=== PATIENT | female | born 1995 | race African-American/Black ===

== ENCOUNTER 2016-07-07 04:30 | Emergency (ER) | payer OTHER ==
--- NOTE | 2016-07-07 07:18 | ED CLINICAL REPORT ---
Clinical Report - Physicians/Mid Levels [facility] [address] [place] [address] 07/07/2016 4:30 Patient: MELIA PANG Time Seen: 04:53 Jul 07 2016. Arrived- By private vehicle. Historian- patient. CPT: ER phys charges level 4 (#[id number]). HISTORY OF PRESENT ILLNESS Chief Complaint: ABDOMINAL PAIN. This started just prior to arrival ( Pt came in with lower abdominal pain. Pt woke up with the pain. [facility] stated she may be preg due to a depo shot that was about 5 months ago when she got the shot. She was at the clinic about 3 weeks ago. Pt is having spotting and was having vaginal discharge 2 days ago that was thick and white. Pt denies any pain on urination. Last BM was yesterday and was normal brown and formed per pt.). and is still present. It was abrupt in onset and has been constant. It is described as "pain", sharp and stabbing and it is described as located in the left pelvis. At its maximum, severity described as moderate. When seen in the E.D., severity described as moderate. Modifying factors- worsened by movement. Relieved by rest. No nausea, loss of appetite, vomiting or diarrhea. (Loss of periods due to depo shot.). No recent travel. Similar symptoms previously: None. Recent medical care: The patient was seen recently by a health care provider. REVIEW OF SYSTEMS No constipation, black stools, hematemesis, difficulty with urination or pain with urination. No urinary frequency, fever, sore throat, chest pain or difficulty breathing. No cough, joint pain, skin rash, chills or back pain. Denies current . All systems otherwise negative, except as recorded above. PAST HISTORY Sinusitis. Conjunctivitis. Asthma. Medications: None. Allergies: No Known Drug Allergy. SOCIAL HISTORY Never smoker. No alcohol use or drug use. ADDITIONAL NOTES The nursing notes have been reviewed. PHYSICAL EXAM Vital Signs: 07/07/2016 04:37 BP: 129/89. HR: 98. RR: 22. O2 saturation: 100%. Temp: 97.8 F. Appearance: Alert. Patient in mild distress. Eyes: Pupils equal, round and reactive to light. Eyes normal inspection. ENT: Ears normal. Nose normal. Pharynx normal. Neck: Normal inspection. Neck supple. CVS: Normal heart rate and rhythm. Heart sounds normal. Pulses normal. Respiratory: No respiratory distress. Breath sounds normal. Chest nontender. Abdomen: Soft. Mild tenderness in the left lower quadrant. Bowel sounds normal. Back: Normal inspection. No CVA tenderness. Skin: Skin warm. Normal skin color. No rash. Extremities: Extremities exhibit normal ROM. No lower extremity edema. Neuro: Oriented X 3. No motor deficit. No sensory deficit. LABS, X-RAYS, AND EKG Laboratory Tests: UA-Culture if indicated: (MENDOZA: 07/07/2016 04:40) ( MsgRcvd 07/07/2016 05:09) Final results Test Result Flag Units (Reference) URINE COLOR YELLOW URINE APPEARANCE CLEAR URINE GLUCOSE NEGATIVE (NEGATIVE) URINE BILIRUBIN NEGATIVE (NEGATIVE) URINE KETONE NEGATIVE (NEGATIVE) URINE SPECIFIC GRAVITY 1.020 (1.010-1.030) URINE PH 6.5 (5.0-8.0) URINE PROTEIN NEGATIVE (NEGATIVE) URINE UROBILINOGEN 0.2 EU/dL (0.2-1.0) URINE NITRITE NEGATIVE (NEGATIVE) URINE BLOOD TRACE-INTACT (NEGATIVE) URINE LEUK ESTERASE NEGATIVE (NEGATIVE) URINE RBC 0-1 rbc/hpf (0-1) URINE WBC NONE SEEN wbc/hpf (0-1) URINE EPITHELIAL CELLS 1-3 EPI/hpf (0-5) URINE BACTERIA NONE SEEN (NONE SEEN) URINE COMMENT CULT NOT INDICATED URINE CULTURES ARE SET-UP BASED ON THE FOLLOWING CRITERIA:POSITIVE NITRITEPOSITIVE LEUKOCYTE ESTERASEGREATER THAN 10 WHITE BLOOD CELLSMODERATE (2+) OR GREATER BACTERIA Urine: (MENDOZA: 07/07/2016 04:40) ( MsgRcvd 07/07/2016 05:04) Final results Test Result Flag Units (Reference) URINE NEGATIVE . PROGRESS AND PROCEDURES Course of Care: ultrasound was called, and a pelvic ultrasound. We were unable to get into contact with the electroplating technician first couple of hours. Patient got frustrated with this and decided to leave prior to getting ultrasound. Discussed the fact that left ovarian cyst was likely diagnosis but could not be proven without imaging. She wishes to follow-up with her PCP. Patient/family counseled. Disposition: Discharged. Condition: stable. CLINICAL IMPRESSION Probable single ruptured simple left ovarian cyst. INSTRUCTIONS Do not work for two days until better. Drink plenty of fluids. Warnings: Further evaluation is necessary. GENERAL WARNINGS: Return or contact your physician immediately if your condition worsens or changes unexpectedly, if not improving as expected, or if other problems arise. Prescription Medications: Hydrocodone/APAP 5mg/325mg: take 1 to 2 orally every 6 hours as needed for pain. Dispense fifteen (15). No refills. Follow-up: Follow up with your doctor Saturday if not better. Understanding of the discharge instructions verbalized by patient. Discharge instructions reviewed with and understanding was verbalized by accounts executive. (Electronically signed by Darnell Vaughn MD 07/09/2016 21:55)
--- NOTE | 2016-07-07 07:18 | ED CLINICAL REPORT ---
Clinical Report - Physicians/Mid Levels [facility] [address] [place] [address] 07/07/2016 4:30 Patient: MELIA PANG Time Seen: 04:53 Jul 07 2016. Arrived- By private vehicle. Historian- patient. CPT: ER phys charges level 4 (#[id number]). HISTORY OF PRESENT ILLNESS Chief Complaint: ABDOMINAL PAIN. This started just prior to arrival ( Pt came in with lower abdominal pain. Pt woke up with the pain. [facility] stated she may be preg due to a depo shot that was about 5 months ago when she got the shot. She was at the clinic about 3 weeks ago. Pt is having spotting and was having vaginal discharge 2 days ago that was thick and white. Pt denies any pain on urination. Last BM was yesterday and was normal brown and formed per pt.). and is still present. It was abrupt in onset and has been constant. It is described as "pain", sharp and stabbing and it is described as located in the left pelvis. At its maximum, severity described as moderate. When seen in the E.D., severity described as moderate. Modifying factors- worsened by movement. Relieved by rest. No nausea, loss of appetite, vomiting or diarrhea. (Loss of periods due to depo shot.). No recent travel. Similar symptoms previously: None. Recent medical care: The patient was seen recently by a health care provider. REVIEW OF SYSTEMS No constipation, black stools, hematemesis, difficulty with urination or pain with urination. No urinary frequency, fever, sore throat, chest pain or difficulty breathing. No cough, joint pain, skin rash, chills or back pain. Denies current . All systems otherwise negative, except as recorded above. PAST HISTORY Sinusitis. Conjunctivitis. Asthma. Medications: None. Allergies: No Known Drug Allergy. SOCIAL HISTORY Never smoker. No alcohol use or drug use. ADDITIONAL NOTES The nursing notes have been reviewed. PHYSICAL EXAM Vital Signs: 07/07/2016 04:37 BP: 129/89. HR: 98. RR: 22. O2 saturation: 100%. Temp: 97.8 F. Appearance: Alert. Patient in mild distress. Eyes: Pupils equal, round and reactive to light. Eyes normal inspection. ENT: Ears normal. Nose normal. Pharynx normal. Neck: Normal inspection. Neck supple. CVS: Normal heart rate and rhythm. Heart sounds normal. Pulses normal. Respiratory: No respiratory distress. Breath sounds normal. Chest nontender. Abdomen: Soft. Mild tenderness in the left lower quadrant. Bowel sounds normal. Back: Normal inspection. No CVA tenderness. Skin: Skin warm. Normal skin color. No rash. Extremities: Extremities exhibit normal ROM. No lower extremity edema. Neuro: Oriented X 3. No motor deficit. No sensory deficit. LABS, X-RAYS, AND EKG Laboratory Tests: UA-Culture if indicated: (MENDOZA: 07/07/2016 04:40) ( MsgRcvd 07/07/2016 05:09) Final results Test Result Flag Units (Reference) URINE COLOR YELLOW URINE APPEARANCE CLEAR URINE GLUCOSE NEGATIVE (NEGATIVE) URINE BILIRUBIN NEGATIVE (NEGATIVE) URINE KETONE NEGATIVE (NEGATIVE) URINE SPECIFIC GRAVITY 1.020 (1.010-1.030) URINE PH 6.5 (5.0-8.0) URINE PROTEIN NEGATIVE (NEGATIVE) URINE UROBILINOGEN 0.2 EU/dL (0.2-1.0) URINE NITRITE NEGATIVE (NEGATIVE) URINE BLOOD TRACE-INTACT (NEGATIVE) URINE LEUK ESTERASE NEGATIVE (NEGATIVE) URINE RBC 0-1 rbc/hpf (0-1) URINE WBC NONE SEEN wbc/hpf (0-1) URINE EPITHELIAL CELLS 1-3 EPI/hpf (0-5) URINE BACTERIA NONE SEEN (NONE SEEN) URINE COMMENT CULT NOT INDICATED URINE CULTURES ARE SET-UP BASED ON THE FOLLOWING CRITERIA:POSITIVE NITRITEPOSITIVE LEUKOCYTE ESTERASEGREATER THAN 10 WHITE BLOOD CELLSMODERATE (2+) OR GREATER BACTERIA Urine: (MENDOZA: 07/07/2016 04:40) ( MsgRcvd 07/07/2016 05:04) Final results Test Result Flag Units (Reference) URINE NEGATIVE . PROGRESS AND PROCEDURES Course of Care: ultrasound was called, and a pelvic ultrasound. We were unable to get into contact with the domestic technician first couple of hours. Patient got frustrated with this and decided to leave prior to getting ultrasound. Discussed the fact that left ovarian cyst was likely diagnosis but could not be proven without imaging. She wishes to follow-up with her PCP. Patient/family counseled. Disposition: Discharged. Condition: stable. CLINICAL IMPRESSION Probable single ruptured simple left ovarian cyst. INSTRUCTIONS Do not work for two days until better. Drink plenty of fluids. Warnings: Further evaluation is necessary. GENERAL WARNINGS: Return or contact your physician immediately if your condition worsens or changes unexpectedly, if not improving as expected, or if other problems arise. Prescription Medications: Hydrocodone/APAP 5mg/325mg: take 1 to 2 orally every 6 hours as needed for pain. Dispense fifteen (15). No refills. Follow-up: Follow up with your doctor Saturday if not better. Understanding of the discharge instructions verbalized by patient. Discharge instructions reviewed with and understanding was verbalized by tug boat captain. (Electronically signed by Darnell Vaughn MD 07/09/2016 21:55)
--- NOTE | 2016-07-07 07:18 | ED NURSING NOTES ---
Clinical Report - Nurses [facility] [address] [place] [address] 07/07/2016 4:30 Patient: MELIA PANG TRIAGE Triage time 04:37. Acuity: LEVEL 3. Chief Complaint: ABDOMINAL PAIN. --04:46 Marvin Poe R.N. 04:37 07/07/16. BP: 129/89. HR: 98. RR: 22. O2 saturation: 100%. Temp: 97.8 F. --04:46 Marvin Poe R.N. Weight: 108.8 kg stated. Height/Length: 64 inches Per Patient. BMI: 41.2. --04:39 Marvin Poe R.N. Medications None. --04:44 Marvin Poe R.N. Medication/allergy information source: the patient. --04:46 Marvin Poe R.N. Allergies No Known Drug Allergy. --04:44 Marvin Poe R.N. History Arrived by private vehicle. Historian: patient. Accompanied by friend. This started just prior to arrival. ( Pt came in with lower abdominal pain. Pt woke up with the pain. [facility] stated she may be preg due to a depo shot that was about 5 months ago when she got the shot. She was at the clinic about 3 weeks ago. Pt is having spotting and was having vaginal discharge 2 days ago that was thick and white. Pt denies any pain on urination. Last BM was yesterday and was normal brown and formed per pt.). 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 SOCIAL HX: Never smoker. No alcohol use or drug use. --04:46 Marvin Poe R.N. PROBLEMS: Sinusitis. Conjunctivitis. Asthma. --04:45 Marvin Poe R.N. Interventions ID band on patient. To treatment room. --04:46 Marvin Poe R.N. PHYSICAL ASSESSMENT GENERAL / NEURO / PSYCH: Alert. Oriented X 4. Appears in no acute distress. RESPIRATORY: Respirations not labored. GI / : Abdominal tenderness in the suprapubic area and lower abdomen. SKIN: Skin is warm and dry. --04:58 Dawna Belcher. NURSING PROGRESS NOTES Patient gowned. Two patient identifiers checked. Call light placed in reach. Side rails up x 1. Bed placed in lowest position. --04:46 Marvin Poe R.N. Patient ready for evaluation- chart flagged and ED physician notified. --04:58 SimizODawna 06:38 07/07/16. BP: 98/50. HR: 74. RR: 20. O2 saturation: 100% on room air. Pain level now: 10/17. --06:39 Dawna Belcher ( Plan of care discussed with patient. Patient resting quietly). --06:39 Dawna Belcher. DISPOSITION / DISCHARGE Departure time: 07:Jul 07 2016. Condition at departure: improved and stable. No learning barriers present. Discharge instructions provided and reviewed with the patient. Reviewed medication(s) side effects, precautions and dosing information. Prescription(s) given to the patient. Patient verbalized understanding. Written instructions provided in Bermudian. The patient was discharged by the physician. She was discharged home and accompanied by director home health. She left the Emergency Department ambulatory and via private vehicle. Bankruptcy Processor driving. --08:02 Ema Lozoya R.N. 08:01 07/07/16. BP: 117/73. HR: 74. RR: 12. O2 saturation: 100% on room air. Temp: 97.8 F (oral). Pain level now: 10/17. --08:02 Ema Lozoya R.N. Locked/Released at 07/07/2016 8:03 by Ema Lozoya R.N.
--- NOTE | 2016-07-07 07:18 | ED ORDER SUMMARY ---
..... Patient: MELIA PANG OrderSheet [facility] VisitID: [id number] [address] [place] [address] 21y, F Registration Date/Time: 07/07/2016 ORDER SHEET Weight: 108.8 kg (stated) Allergies: No Known Drug Allergy GENERAL ORDERS: UA-Culture if indicated Urgent (04:56 07/07/2016 HSoule per protocol) (Ack 5:25 Randell) (5:39 Damien R.N.) Urine Urgent (04:56 07/07/2016 HSoule per protocol) (Ack 5:03 Damien R.NLuis) (5:12 HSoule) US Pelvic Complete w Transvag Urgent (05:06 07/07/2016 Carla MUÑOZ) (Ack 5:25 Randell) (Cancelled: Other8:03 Tamra Falcon.Hadley) MEDICATION ORDERS: IV FLUIDS: ORDER SHEET NOTES: [Electronically signed by Ema Lozoya R.N. (08:03 07/07/2016)] [Electronically signed by Darnell Vaughn MD (21:55 07/09/2016)] [Electronically locked/signed by Ema Lozoya R.N. (08:03 07/07/2016)]
--- NOTE | 2016-07-07 07:18 | ED ORDER SUMMARY ---
..... Patient: MELIA PANG OrderSheet [facility] VisitID: [id number] [address] [place] [address] 21y, F Registration Date/Time: 07/07/2016 ORDER SHEET Weight: 108.8 kg (stated) Allergies: No Known Drug Allergy GENERAL ORDERS: UA-Culture if indicated Urgent (04:56 07/07/2016 HSoule per protocol) (Ack 5:25 Randell) (5:39 Damien R.N.) Urine Urgent (04:56 07/07/2016 HSoule per protocol) (Ack 5:03 Damien R.NLuis) (5:12 HSoule) US Pelvic Complete w Transvag Urgent (05:06 07/07/2016 Carla MUÑOZ) (Ack 5:25 Randell) (Cancelled: Other8:03 Tamra Falcon.Hadley) MEDICATION ORDERS: IV FLUIDS: ORDER SHEET NOTES: [Electronically signed by Ema Lozoya R.N. (08:03 07/07/2016)] [Electronically signed by Darnell Vaughn MD (21:55 07/09/2016)] [Electronically locked/signed by Ema Lozoya R.N. (08:03 07/07/2016)]
--- NOTE | 2016-07-07 07:18 | ED NURSING NOTES ---
Clinical Report - Nurses [facility] [address] [place] [address] 07/07/2016 4:30 Patient: MELIA PANG TRIAGE Triage time 04:37. Acuity: LEVEL 3. Chief Complaint: ABDOMINAL PAIN. --04:46 Marvin Poe R.N. 04:37 07/07/16. BP: 129/89. HR: 98. RR: 22. O2 saturation: 100%. Temp: 97.8 F. --04:46 Marvin Poe R.N. Weight: 108.8 kg stated. Height/Length: 64 inches Per Patient. BMI: 41.2. --04:39 Marvin Poe R.N. Medications None. --04:44 Marvin Poe R.N. Medication/allergy information source: the patient. --04:46 Marvin Poe R.N. Allergies No Known Drug Allergy. --04:44 Marvin Poe R.N. History Arrived by private vehicle. Historian: patient. Accompanied by friend. This started just prior to arrival. ( Pt came in with lower abdominal pain. Pt woke up with the pain. [facility] stated she may be preg due to a depo shot that was about 5 months ago when she got the shot. She was at the clinic about 3 weeks ago. Pt is having spotting and was having vaginal discharge 2 days ago that was thick and white. Pt denies any pain on urination. Last BM was yesterday and was normal brown and formed per pt.). 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 SOCIAL HX: Never smoker. No alcohol use or drug use. --04:46 Marvin Poe R.N. PROBLEMS: Sinusitis. Conjunctivitis. Asthma. --04:45 Marvin Poe R.N. Interventions ID band on patient. To treatment room. --04:46 Marvin Poe R.N. PHYSICAL ASSESSMENT GENERAL / NEURO / PSYCH: Alert. Oriented X 4. Appears in no acute distress. RESPIRATORY: Respirations not labored. GI / : Abdominal tenderness in the suprapubic area and lower abdomen. SKIN: Skin is warm and dry. --04:58 Dawna Belcher. NURSING PROGRESS NOTES Patient gowned. Two patient identifiers checked. Call light placed in reach. Side rails up x 1. Bed placed in lowest position. --04:46 Marvin Poe R.N. Patient ready for evaluation- chart flagged and ED physician notified. --04:58 SimiOzDawna 06:38 07/07/16. BP: 98/50. HR: 74. RR: 20. O2 saturation: 100% on room air. Pain level now: 10/17. --06:39 Dawna Belcher ( Plan of care discussed with patient. Patient resting quietly). --06:39 Dawna Belcher. DISPOSITION / DISCHARGE Departure time: 07:Jul 07 2016. Condition at departure: improved and stable. No learning barriers present. Discharge instructions provided and reviewed with the patient. Reviewed medication(s) side effects, precautions and dosing information. Prescription(s) given to the patient. Patient verbalized understanding. Written instructions provided in Tajik. The patient was discharged by the physician. She was discharged home and accompanied by training personnel supervisor. She left the Emergency Department ambulatory and via private vehicle. Model Builder Display driving. --08:02 Ema Lozoya R.N. 08:01 07/07/16. BP: 117/73. HR: 74. RR: 12. O2 saturation: 100% on room air. Temp: 97.8 F (oral). Pain level now: 10/17. --08:02 Ema Lozoya R.N. Locked/Released at 07/07/2016 8:03 by Ema Lozoya R.N.
--- NOTE | 2016-07-09 21:55 | ED MAR SUMMARY ---
..... Medication Administration Record [facility] [address] [place] [address] Patient: MELIA PANG Visit ID: [id number] 21y, F Weight: 108.8 kg Height/Length: 64 in BMI: 41.2 ALLERGIES: No Known Drug Allergy
--- NOTE | 2016-07-09 21:55 | ED MED RECONCILIATION SUMMARY ---
Patient: MELIA PANG Medication Reconciliation Report [facility] VisitID: [id number] [address] [place] [address] 21y, F Registration Date/Time: 07/07/2016 Weight: 108.8 kg Height/Length: 64 in. BMI: 41.2 ALLERGIES: No Known Drug Allergy The patient's Home Medications are listed below: NONE. The source(s) of the original Home Medication information: patient The following Medications were given to the patient in the Emergency Department: None. The following Medications were prescribed to the patient: Hydrocodone/APAP 5mg/325mg: take 1 to 2 orally every 6 hours as needed for pain. Dispense fifteen (15). No refills. -- Darnell Vaughn MD
--- NOTE | 2016-07-09 21:55 | ED MED RECONCILIATION SUMMARY ---
Patient: MELIA PANG Medication Reconciliation Report [facility] VisitID: [id number] [address] [place] [address] 21y, F Registration Date/Time: 07/07/2016 Weight: 108.8 kg Height/Length: 64 in. BMI: 41.2 ALLERGIES: No Known Drug Allergy The patient's Home Medications are listed below: NONE. The source(s) of the original Home Medication information: patient The following Medications were given to the patient in the Emergency Department: None. The following Medications were prescribed to the patient: Hydrocodone/APAP 5mg/325mg: take 1 to 2 orally every 6 hours as needed for pain. Dispense fifteen (15). No refills. -- Darnell Vaughn MD
--- NOTE | 2016-07-09 21:55 | ED DISCHARGE INSTRUCTIONS ---
Patient: MELIA PANG General Instructions [facility] VisitID: [id number] [address] [place] [address] 21y, F Registration Date/Time: 07/07/2016 Probable single ruptured simple left ovarian cyst. INSTRUCTIONS Do not work for two days until better. Drink plenty of fluids. Warnings: Further evaluation is necessary. GENERAL WARNINGS: Return or contact your physician immediately if your condition worsens or changes unexpectedly, if not improving as expected, or if other problems arise. Prescription Medications: Hydrocodone/APAP 5mg/325mg: take 1 to 2 orally every 6 hours as needed for pain. Dispense fifteen (15). No refills. Follow-up: Follow up with your doctor Saturday if not better. Understanding of the discharge instructions verbalized by patient. Discharge instructions reviewed with and understanding was verbalized by funding specialist. ADDITIONAL INFORMATION Ovarian Cyst The ovary is a small organ located on each side of the uterus. During each menstrual cycle a tiny egg sac forms in the ovary. If the egg is released but does not occur, this sac usually dissolves. Sometimes, the sac may fill with fluid. It then enlarges into a painful cyst. Usually the cyst will rupture or shrink on its own. In either case, the pain gradually goes away over the next 1-3 days. If the cyst does not shrink or rupture, it may cause continued pain. Home Care: Rest in bed and avoid heavy exertion until you are feeling better. Heat to the lower abdomen usually helps (heating pad or hot packs -- a small towel soaked in hot water). You may use acetaminophen (Tylenol) or ibuprofen (Motrin, Advil) to control pain, unless another pain medicine was prescribed. [NOTE: If you have chronic liver or kidney disease or ever had a stomach ulcer or GI bleeding, talk with your doctor before using these medicines.] Follow Up: See your doctor within the next 2-3 days if your pain doesnt improve. Otherwise, follow up with your doctor after your next period or as directed by our staff. Get Prompt Medical Attention if any of the following occur: Pain worsens or fails to respond to the above measures Fever of 100.4F (38C) or higher, or as directed by your healthcare provider Heavy vaginal bleeding (soaking one pad an hour for three hours) You feel weak or dizzy Fainting Passage of a pink or armenta tissue with menstrual bleeding You have been given the following additional information: Ovarian Cyst Do not work for two days until better. (Electronically signed by Darnell Vaughn MD 07/09/2016 21:55)
--- NOTE | 2016-07-09 21:55 | ED MAR SUMMARY ---
..... Medication Administration Record [facility] [address] [place] [address] Patient: MELIA PANG Visit ID: [id number] 21y, F Weight: 108.8 kg Height/Length: 64 in BMI: 41.2 ALLERGIES: No Known Drug Allergy
--- NOTE | 2016-07-09 21:55 | ED DISCHARGE INSTRUCTIONS ---
Patient: MELIA PANG General Instructions [facility] VisitID: [id number] [address] [place] [address] 21y, F Registration Date/Time: 07/07/2016 Probable single ruptured simple left ovarian cyst. INSTRUCTIONS Do not work for two days until better. Drink plenty of fluids. Warnings: Further evaluation is necessary. GENERAL WARNINGS: Return or contact your physician immediately if your condition worsens or changes unexpectedly, if not improving as expected, or if other problems arise. Prescription Medications: Hydrocodone/APAP 5mg/325mg: take 1 to 2 orally every 6 hours as needed for pain. Dispense fifteen (15). No refills. Follow-up: Follow up with your doctor Saturday if not better. Understanding of the discharge instructions verbalized by patient. Discharge instructions reviewed with and understanding was verbalized by conical mixer. ADDITIONAL INFORMATION Ovarian Cyst The ovary is a small organ located on each side of the uterus. During each menstrual cycle a tiny egg sac forms in the ovary. If the egg is released but does not occur, this sac usually dissolves. Sometimes, the sac may fill with fluid. It then enlarges into a painful cyst. Usually the cyst will rupture or shrink on its own. In either case, the pain gradually goes away over the next 1-3 days. If the cyst does not shrink or rupture, it may cause continued pain. Home Care: Rest in bed and avoid heavy exertion until you are feeling better. Heat to the lower abdomen usually helps (heating pad or hot packs -- a small towel soaked in hot water). You may use acetaminophen (Tylenol) or ibuprofen (Motrin, Advil) to control pain, unless another pain medicine was prescribed. [NOTE: If you have chronic liver or kidney disease or ever had a stomach ulcer or GI bleeding, talk with your doctor before using these medicines.] Follow Up: See your doctor within the next 2-3 days if your pain doesnt improve. Otherwise, follow up with your doctor after your next period or as directed by our staff. Get Prompt Medical Attention if any of the following occur: Pain worsens or fails to respond to the above measures Fever of 100.4F (38C) or higher, or as directed by your healthcare provider Heavy vaginal bleeding (soaking one pad an hour for three hours) You feel weak or dizzy Fainting Passage of a pink or armenta tissue with menstrual bleeding You have been given the following additional information: Ovarian Cyst Do not work for two days until better. (Electronically signed by Darnell Vaughn MD 07/09/2016 21:55)
== END 2016-07-07 07:20 | disposition home or self-care (01) ==
LOC: ED SRH 04:30
DX: N83.202 Unspecified ovarian cyst, left side (principal); J45.909 Unspecified asthma, uncomplicated
CPT/HCPCS: 90004; 93070

== ENCOUNTER 2016-07-24 18:25 | Emergency (ER) | payer OTHER ==
--- NOTE | 2016-07-24 20:22 | DIAGNOSTIC IMAGING REPORT ---
PROCEDURE: CT ABD/PELVIS WITH CONTRAST CLINICAL INDICATION: Right lower quadrant pain x several days, initial encounter TECHNIQUE: 145 ml of Isovue 300 were injected intravenously and axial images were obtained of the entire abdomen and pelvis with sagittal and coronal reformations. COMPARISON: None. FINDINGS: ABDOMEN: Lung bases are clear. Heart size is normal . Liver, gallbladder, pancreas, spleen, adrenal glands, kidneys and abdominal aorta are normal. Nonspecific bowel gas pattern . PELVIS: 1.5 cm involuting right ovarian cyst. Trace free fluid. Uterus and bladder are normal. Normal appendix. The bones are unremarkable. IMPRESSION: 1. 1.5 cm involuting right ovarian cyst with trace free fluid 2. Results discussed with Ashley Schwartz All CT scans at this facility use dose modulation, iterative reconstruction, and/or weight-based dosing when appropriate to reduce radiation dose to as low as reasonably achievable.
--- NOTE | 2016-07-24 20:29 | ED NURSING NOTES ---
Clinical Report - Nurses [facility] [address] [place] [address] 07/24/2016 18:26 Patient: MELIA PANG TRIAGE Triage time 18:30 Jul 24 2016. Acuity: LEVEL 3. Chief Complaint: ABDOMINAL PAIN, NAUSEA and VOMITING. Alert. SUYAPA COMA SCORE: Prosperity Coma Scale: 15- eyes open spontaneously (4); best verbal response- oriented x 4 (5); best motor response- obeys commands (6). --18:43 Evangelist Alberto R.N. 18:33 07/24/16. BP: 132/75. HR: 96. RR: 16. O2 saturation: 100% on room air. Temp: 99.3 F (oral). Pain level now: 08/17. --18:43 Evangelist Alberto R.N. Weight: 109.3 kg stated. Height/Length: 64 inches Per Patient. BMI: 41.4. --18:33 Evangelist Alberto R.N. Medications Vitamins Oral 1 pill, daily. --18:42 Evangelist Alberto R.N. Medication/allergy information source: the patient. --18:43 Evangelist Alberto R.N. Allergies No Known Drug Allergy. --18:43 Evangelist Alberto R.N. History Arrived by private vehicle. Historian: patient. Accompanied by friend. [facility] ([facility] ( RLQ Abdominal Pain, which is intermittent and associated with nausea. Pt states that she was here ~ 3 weeks ago for the same c/o.). This started today. She has had nausea and abdominal pain. Last oral intake by patient was (about 5 hours ago). Treatment QUILLER TENDER: None. PAST MEDICAL HX: Immunizations: up-to-date. SOCIAL HX: Never smoker. No drug use. No recent travel. No infectious disease exposure. ABUSE ASSESSMENT: No report of abuse. FALL RISK ASSESSMENT: Fall risk assessment completed. No fall risk identified. NUTRITIONAL RISK ASSESSMENT: The nutritional risk assessment revealed no deficiencies. FUNCTIONAL ASSESSMENT: Functional assessment: no impairments noted. LEARNING NEEDS ASSESSMENT: The learning needs assessment revealed no barriers. SKIN INTEGRITY ASSESSMENT: Skin integrity risk assessment completed. No skin integrity risk identified. --18:43 Evangelist Alberto R.N. PROBLEMS: Sinusitis. Conjunctivitis. Asthma. --18:43 Evangelist Alberto R.N. Ovarian Cyst [RuleOut]. --18:43 Evangelist Alberto R.N. Interventions ID band on patient. To treatment room. --18:43 Evangelist Alberto R.N. PHYSICAL ASSESSMENT Ambulatory to room. GENERAL / NEURO / PSYCH: Alert. Oriented X 4. HEENT: Mucous membranes are pink. RESPIRATORY: Respirations not labored. CVS: Normal sinus rhythm noted. Capillary refill less than 2 seconds. GI / : Abdomen soft. Abdominal tenderness in the right side of the abdomen and right lower quadrant. Bowel sounds within normal limits. SKIN: Skin is warm and dry. --18:44 Evangelist Alberto R.N. NURSING PROGRESS NOTES Patient gowned. Reassurance given. Patient identifiers checked. Call light placed in reach. Side rails up x 1. Bed placed in lowest position. Brakes of bed on. Patient ready for evaluation- chart flagged and ED physician notified. --18:45 Evangelist Alberto R.N. 18:40 07/24/16. Patient ID band checked for patient name, birthdate and medical record number: patient confirmed. Instructions provided to collect clean catch urine and patient verbalized understanding. Clean catch urine collected with return of yellow-colored clear urine; odor is normal; sample sent to lab for urinalysis and culture. Specimen labeled in the presence of the patient. --18:53 Evangelist Alberto R.N. 19:02 07/24/2016 Site #1 started via IV in the left antecubital space with an 20g angiocath, with aseptic technique and good blood return; one attempt. Blood drawn: rainbow set. Labeled in the presence of the patient and sent to the lab. Saline lock flushed with 10 mL saline. --19:07 Evangelist Alberto R.N. 19:11 07/24/16. Care transferred and report received. --19:11 Tiffany Mcmullen 19:18 07/24/2016 Started bag #1 1000 mL IV Fluids IV NS (Saline); at 1000 mL/hr over 1 hour(s) via site #1 via IV pump. Allergies verified and confirmed 5 rights. IV patency established. IV site checked: no pain, redness, or swelling. IV flushed thoroughly pre- and post-medication administration. --19:23 Tiffany Mcmullen 19:20 07/24/2016 Zofran (Ondansetron HCl) IVP 4 mg given over 1 minute(s) via site #1. Allergies verified and confirmed 5 rights. IV patency established. IV site checked: no pain, redness, or swelling. IV flushed thoroughly pre- and post-medication administration. IVP given by RN. --19:23 Tiffany Mcmullen 19:22 07/24/2016 Toradol IVP 30 mg given over 1 minute(s) via site #1. Allergies verified and confirmed 5 rights. IV patency established. IV site checked: no pain, redness, or swelling. IV flushed thoroughly pre- and post-medication administration. IVP given by RN. --19:23 Tiffany Mcmullen 19:31 07/24/16. BP: 115/69. HR: 89. RR: 15 (regular and unlabored). O2 saturation: 100% on room air. Pain level now: 08/17. --19:32 Tiffany Mcmullen 19:45 07/24/16. ( Pt ambulated to , tolerated well.). --19:45 Tiffany Mcmullen 20:46 07/24/2016 Site #1 removed upon discharge. Catheter intact. Pressure dressing applied. --20:51 Tiffany Mcmullen 20:46 07/24/2016 IV Fluids IV NS Discontinued: bag #1 discontinued upon discharge. Total amount infused: 600 mL. IV patency established. IV site checked: no pain, redness, or swelling. IV flushed thoroughly. --20:51 Tiffany Mcmullen 20:46 07/24/2016 IV Saline Lock Drip IV Discontinued: bag #1. Total amount infused: 0 mL. --20:51 Tiffany Mcmullen. DISPOSITION / DISCHARGE 20:41 07/24/16. Condition at departure: improved. The goals identified in the patient's plan of care were met. FALL RISK ASSESSMENT: Fall risk assessment completed. No fall risk identified. --20:41 Tiffany Mcmullen 20:40 07/24/16. BP: 115/63. HR: 92. RR: 16. O2 saturation: 99% on room air. Temp: 98.4 F. Pain level now: 09/17. --20:41 Tiffany Mcmullen 20:50 07/24/16. Departure time: 20:50 Jul 24 2016. No learning barriers present. Discharge instructions provided and reviewed with the patient. Reviewed warnings (Patient verbalized awareness of warning s/sx listed in dc paperwork. Pt verbalized understanding of sedation warning.). Reviewed medication(s) side effects, precautions, dosing and course information. Prescription(s) given to the patient (Ultram). Treatments reviewed. Reviewed referral to an drafter patent for followup. Patient verbalized understanding. Written instructions provided in Belizean. The patient was discharged by the nurse practitioner. She was discharged home and accompanied by founder and ceo. She left the Emergency Department ambulatory and via private vehicle. [employer] Lieutenant driving. --20:50 Tiffany Mcmullen. Locked/Released at 07/24/2016 21:29 by Tiffany Mcmullen,
--- NOTE | 2016-07-24 20:29 | ED ORDER SUMMARY ---
..... Patient: MELIA PANG OrderSheet [facility] VisitID: [id number] [place] [address] 21y, F Registration Date/Time: 07/24/2016 ORDER SHEET Weight: 109.3 kg (stated) Allergies: No Known Drug Allergy GENERAL ORDERS: CBC w Diff Urgent (18:49 07/24/2016 HBivens A.R.N.P.) (Ack 18:50 NHouse ER Tech1) (19:12 ASchmuck) CMP Urgent (18:49 07/24/2016 HBivens A.R.N.P.) (Ack 18:50 NHouse ER Tech1) (19:12 ASchmuck) UA-Culture if indicated Urgent (18:49 07/24/2016 HBivens A.R.N.P.) (Ack 18:50 NHouse ER Tech1) (18:52 JRomanelli R.N.) Amylase Urgent (18:49 07/24/2016 HBivens A.R.N.P.) (Ack 18:50 NHouse ER Tech1) (19:12 ASchmuck) Lipase Urgent (18:49 07/24/2016 HBivens A.R.N.P.) (Ack 18:50 NHouse ER Tech1) (19:12 ASchmuck) Urine Urgent (18:49 07/24/2016 HBivens A.R.N.P.) (Ack 18:50 NHouse ER Tech1) (19:12 ASchmuck) CT Abd/Pel w Cont (No) (pending) Urgent (19:38 07/24/2016 HBivens A.R.N.P.) (Ack 19:41 AMcQuoid ER Tech1) (20:00 MCampbell) MEDICATION ORDERS: IV FLUIDS: Toradol IV 30 mg (NOW) (18:49 07/24/2016 HBivens A.R.N.P.) (Ack 19:12 ASchmuck) (19:23 ASchmuck) Zofran IV 4 mg (NOW) (18:49 07/24/2016 HBivens A.R.N.P.) (Ack 19:12 ASchmuck) (19:23 ASchmuck) IV Saline Lock (18:49 07/24/2016 HBivens A.R.N.P.) (19:07 Chani R.N.) IV NS : initial bolus 1000 mL (1000 mL/hr), then none - (NOW) (19:07 07/24/2016 HBivens A.R.N.P.) (Ack 19:12 ASchmuck) (19:23 ASchmuck) ORDER SHEET NOTES: [Electronically signed by Ashley Schwartz A.R.N.P. (20:54 07/24/2016)] [Electronically signed by Tiffany Mcmullen (21:29 07/24/2016)] [Electronically locked/signed by Tiffany Mcmullen (21:29 07/24/2016)]
--- NOTE | 2016-07-24 20:29 | ED CLINICAL REPORT ---
Clinical Report - Physicians/Mid Levels [facility] [address] [place] [address] 07/24/2016 18:26 Patient: MELIA PANG Time Seen: 18:30; initial patient contact, initial documentation, patient care assumed. Arrived- By private vehicle. Historian- patient. RETURN VISIT: recently seen in this ED by another physician. Seen now for the same problem as before. HISTORY OF PRESENT ILLNESS Chief Complaint: ABDOMINAL PAIN. At its maximum, severity described as severe. When seen in the E.D., it was almost gone. It is described as "pain" and sharp and it is described as located in the right lower quadrant and radiating to the right upper quadrant of the abdomen. This started about 3 days ago and is still present. The patient has had nausea and vomiting. No loss of appetite or diarrhea. No recent travel. Similar symptoms previously: Once, milder. Recent medical care: The patient was seen recently at this facility in the emergency department. ( txed here Jul 07 for same thing, rx hydrocodone given, no f/u and pain started back up, thinks it could be start of period, because they have been irregular since depo). REVIEW OF SYSTEMS No constipation, black stools, hematemesis, difficulty with urination or pain with urination. No urinary frequency, bloody stools, fever, chest pain or difficulty breathing. She missed her last several periods. She has been sexually active and is possibly . No use of control. No history of bilateral tubal ligation. All systems otherwise negative, except as recorded above. PAST HISTORY See nurses notes. PROBLEMS: Pharyngitis. Ear Infection. Strep Throat. Fractured Metacarpal. Asthma. Scarlet Fever. --16:40 Evangelist Alberto RBrian. ADDITIONAL SURGERIES: Hemangioma removed. Tonsillectomy. --16:40 Evangelist Alberto R.N. SOCIAL HISTORY Never smoker. No alcohol use or drug use. No recent travel. Is a local resident. FAMILY HISTORY Negative. ADDITIONAL NOTES The nursing notes have been reviewed with agreement regarding the chief complaint, HPI, ROS, PMH and patient medications and allergies. PHYSICAL EXAM Vital Signs: 07/24/2016 18:33 BP: 132/75. HR: 96. RR: 16. O2 saturation: 100%. Temp: 99.3 F. Pain level now: 08/17. Have been reviewed as normal and appear to be correct. Appearance: Alert. Oriented X3. No acute distress. Eyes: Pupils equal, round and reactive to light. Eyes normal inspection. Neck: Normal inspection. Neck supple. CVS: Normal heart rate and rhythm. Heart sounds normal. Pulses normal. Respiratory: No respiratory distress. Breath sounds normal. Chest nontender. Abdomen: Soft. Mild tenderness in the right lower quadrant. No guarding, rebound tenderness or Cook's, obturator or psoas sign present. Bowel sounds normal. No organomegaly. No mass. Mildly obese. Tenderness present. Back: Normal inspection. Skin: Skin warm and dry. Normal skin color. No rash. Normal skin turgor. Extremities: Extremities exhibit normal ROM. No lower extremity edema. Neuro: Oriented X 3. No motor deficit. No sensory deficit. LABS, X-RAYS, AND EKG Abdominal CT: . IMPRESSION: 1. 1.5 cm involuting right ovarian cyst with trace free fluid 2. Results discussed with Ashley Schwartz All CT scans at this facility use dose modulation, iterative reconstruction, and/or weight-based dosing when appropriate to reduce radiation dose to as low as reasonably achievable. Electronically Final signed by:Macario Brito MD 07/24/2016 8:22:38 PM. The study was interpreted by the radiologist and contemporaneously by me. Interpretation time: 2019. Laboratory Tests: UA-Culture if indicated: (MENDOZA: 07/24/2016 18:35) ( MsgRcvd 07/24/2016 19:07) Final results Test Result Flag Units (Reference) URINE COLOR YELLOW URINE APPEARANCE CLEAR URINE GLUCOSE NEGATIVE (NEGATIVE) URINE BILIRUBIN NEGATIVE (NEGATIVE) URINE KETONE TRACE (NEGATIVE) URINE SPECIFIC GRAVITY 1.025 (1.010-1.030) URINE PH 6.0 (5.0-8.0) URINE PROTEIN NEGATIVE (NEGATIVE) URINE UROBILINOGEN 1.0 EU/dL (0.2-1.0) URINE NITRITE NEGATIVE (NEGATIVE) URINE BLOOD NEGATIVE (NEGATIVE) URINE LEUK ESTERASE NEGATIVE (NEGATIVE) URINE RBC 1-3 rbc/hpf (0-1) URINE WBC 0-1 wbc/hpf (0-1) URINE EPITHELIAL CELLS 3-5 EPI/hpf (0-5) URINE BACTERIA FEW (1+) (NONE SEEN) URINE COMMENT CULT NOT INDICATED 1+ MUCUSURINE CULTURES ARE SET-UP BASED ON THE FOLLOWING CRITERIA:POSITIVE NITRITEPOSITIVE LEUKOCYTE ESTERASEGREATER THAN 10 WHITE BLOOD CELLSMODERATE (2+) OR GREATER BACTERIA Urine: (MENDOZA: 07/24/2016 18:35) ( [facility] 07/24/2016 18:58) Final results Test Result Flag Units (Reference) URINE NEGATIVE CBC w Diff: (MENDOZA: 07/24/2016 19:00) ( [facility] 07/24/2016 19:11) Final results Test Result Flag Units (Reference) WHITE BLOOD COUNT 7.3 K/uL (4.5-11.5) RED BLOOD COUNT 4.62 M/uL (4.00-5.20) HEMOGLOBIN 13.3 gm/dL (12.0-16.0) HEMATOCRIT 39.5 % (36.0-46.0) MEAN CELL VOLUME 86 fL (80-100) MEAN CORPUSCULAR HGB 29 pg (26-34) MEAN CORPUSCULAR HGB CONC 34 g/dL (31-37) RED CELL DISTRIBUTION WIDTH 14.2 % (11.6-14.8) PLATELET COUNT 245 K/uL (150-400) NEUTROPHIL % 66.1 % (50-75) LYMPH % 30.3 % (25-40) MONO % 2.9 L % (3-14) EOSINOPHIL % 0.2 % (0-4) BASOPHIL % 0.5 % (0-2) CMP: (MENDOZA: 07/24/2016 19:00) ( [facility] 07/24/2016 19:24) Final results Test Result Flag Units (Reference) GLUCOSE 88 mg/dL (70-110) BUN 14 mg/dL (7-18) CREATININE 0.9 mg/dL (0.6-1.3) Estimated GFR >60 mL/min Estimated GFR- >60 mL/min Note: Persistent reduction over 3 months in eGFR<60 mL/min/1.73 m2 defines CKD. Patients with eGFR values>=60 mL/min/1.73 m2 may also have CKD if evidence ofpersistent proteinuria. Additional information may be foundat www.kidney.org. SODIUM 138 mmol/L (136-145) POTASSIUM 3.9 mmol/L (3.5-5.1) CHLORIDE 103 mmol/L (98-107) CARBON DIOXIDE 25 mmol/L (21-32) CALCIUM 8.7 mg/dL (8.5-10.1) TOTAL PROTEIN 7.4 g/dL (6.4-8.2) ALBUMIN 3.6 g/dL (3.3-5.0) BILIRUBIN, TOTAL 0.2 mg/dL (0.0-1.0) ALKALINE PHOSPHATASE 72 U/L (46-116) AST (SGOT) 18 U/L (15-37) ALT (SGPT) 23 U/L (12-78) LIPASE 147 U/L (73-393) AMYLASE 54 U/L (25-115) . PROGRESS AND PROCEDURES Course of Care: 18:56 07/24/16. pt has desi for #7 er visits, see report for full details aware of ct order. Patient counseled in person regarding the patient's stable condition, test results and diagnosis. 20:27. Differential Diagnosis: I considered acute appendicitis, intraabdominal abscess, hernia, urinary tract infection, ovarian cyst, ovarian torsion, , ectopic , pelvic inflammatory disease, pelvic abscess, endometriosis and viral syndrome as a possible cause of abdominal pain in this patient. This is a partial list of diagnoses considered. Above considerations are based on history, physical exam and laboratory data. Differential diagnosis was discussed with patient. Disposition: Discharged home in good and improved condition (20:29). Condition: good and stable. CLINICAL IMPRESSION Single simple right ovarian cyst. No ruptured ovarian cyst, torsion of ovary or polycystic ovarian disease. Acute right lower quadrant abdominal pain. INSTRUCTIONS Do not work tomorrow. Warnings: GENERAL WARNINGS: Return or contact your physician immediately if your condition worsens or changes unexpectedly, if not improving as expected, or if other problems arise. SPECIFICALLY, return if you develop pain in the abdomen or pelvis, fever, the inability to keep fluids down, blood in vomitus, blood in diarrhea, fainting, lightheadedness or vaginal bleeding. Prescription Medications: Ultram 50 mg tablets: take 1-2 orally every 6 hours as needed for pain. Dispense twenty (20). No refills. Substitution is permissible. Understanding of the discharge instructions verbalized by patient. Follow-up with: Willie Hensley MD, Obstetrics/Gynecology, , [facility], [address] [place] [address] Follow up in about two days even if well. Call for an appointment. Summary of care provided to patient. (Electronically signed by Ashley Schwartz A.R.N.P. 07/24/2016 20:54)
--- NOTE | 2016-07-24 20:29 | ED NURSING NOTES ---
Clinical Report - Nurses [facility] [address] [place] [address] 07/24/2016 18:26 Patient: MELIA PANG TRIAGE Triage time 18:30 Jul 24 2016. Acuity: LEVEL 3. Chief Complaint: ABDOMINAL PAIN, NAUSEA and VOMITING. Alert. SUYAPA COMA SCORE: [place] Coma Scale: 15- eyes open spontaneously (4); best verbal response- oriented x 4 (5); best motor response- obeys commands (6). --18:43 Evangelist Alberto R.N. 18:33 07/24/16. BP: 132/75. HR: 96. RR: 16. O2 saturation: 100% on room air. Temp: 99.3 F (oral). Pain level now: 08/17. --18:43 Evangelist Alberto R.N. Weight: 109.3 kg stated. Height/Length: 64 inches Per Patient. BMI: 41.4. --18:33 Evangelist Alberto R.N. Medications Vitamins Oral 1 pill, daily. --18:42 Evangelist Alberto R.N. Medication/allergy information source: the patient. --18:43 Evangelist Alberto R.N. Allergies No Known Drug Allergy. --18:43 Evangelist Alberto R.N. History Arrived by private vehicle. Historian: patient. Accompanied by friend. [facility] ( RLQ Abdominal Pain, which is intermittent and associated with nausea. Pt states that she was here ~ 3 weeks ago for the same c/o.). This started today. She has had nausea and abdominal pain. Last oral intake by patient was (about 5 hours ago). 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 PAST MEDICAL HX: Immunizations: up-to-date. SOCIAL HX: Never smoker. No drug use. No recent travel. No infectious disease exposure. ABUSE ASSESSMENT: No report of abuse. FALL RISK ASSESSMENT: Fall risk assessment completed. No fall risk identified. NUTRITIONAL RISK ASSESSMENT: The nutritional risk assessment revealed no deficiencies. FUNCTIONAL ASSESSMENT: Functional assessment: no impairments noted. LEARNING NEEDS ASSESSMENT: The learning needs assessment revealed no barriers. SKIN INTEGRITY ASSESSMENT: Skin integrity risk assessment completed. No skin integrity risk identified. --18:43 Evangelist Alberto R.N. PROBLEMS: Sinusitis. Conjunctivitis. Asthma. --18:43 Evangelist Alberto R.N. Ovarian Cyst [RuleOut]. --18:43 Evangelist Alberto R.N. Interventions ID band on patient. To treatment room. --18:43 Evangelist Alberto R.N. PHYSICAL ASSESSMENT Ambulatory to room. GENERAL / NEURO / PSYCH: Alert. Oriented X 4. HEENT: Mucous membranes are pink. RESPIRATORY: Respirations not labored. CVS: Normal sinus rhythm noted. Capillary refill less than 2 seconds. GI / : Abdomen soft. Abdominal tenderness in the right side of the abdomen and right lower quadrant. Bowel sounds within normal limits. SKIN: Skin is warm and dry. --18:44 Evangelist Alberto R.N. NURSING PROGRESS NOTES Patient gowned. Reassurance given. Patient identifiers checked. Call light placed in reach. Side rails up x 1. Bed placed in lowest position. Brakes of bed on. Patient ready for evaluation- chart flagged and ED physician notified. --18:45 Evangelist Alberto R.N. 18:40 07/24/16. Patient ID band checked for patient name, birthdate and medical record number: patient confirmed. Instructions provided to collect clean catch urine and patient verbalized understanding. Clean catch urine collected with return of yellow-colored clear urine; odor is normal; sample sent to lab for urinalysis and culture. Specimen labeled in the presence of the patient. --18:53 Evangelist Alberto R.N. 19:02 07/24/2016 Site #1 started via IV in the left antecubital space with an 20g angiocath, with aseptic technique and good blood return; one attempt. Blood drawn: rainbow set. Labeled in the presence of the patient and sent to the lab. Saline lock flushed with 10 mL saline. --19:07 Evangelist Alberto R.N. 19:11 07/24/16. Care transferred and report received. --19:11 Tiffany Mcmullen 19:18 07/24/2016 Started bag #1 1000 mL IV Fluids IV NS (Saline); at 1000 mL/hr over 1 hour(s) via site #1 via IV pump. Allergies verified and confirmed 5 rights. IV patency established. IV site checked: no pain, redness, or swelling. IV flushed thoroughly pre- and post-medication administration. --19:23 Tiffany Mcmullen 19:20 07/24/2016 Zofran (Ondansetron HCl) IVP 4 mg given over 1 minute(s) via site #1. Allergies verified and confirmed 5 rights. IV patency established. IV site checked: no pain, redness, or swelling. IV flushed thoroughly pre- and post-medication administration. IVP given by RN. --19:23 Tiffany Mcmullen 19:22 07/24/2016 Toradol IVP 30 mg given over 1 minute(s) via site #1. Allergies verified and confirmed 5 rights. IV patency established. IV site checked: no pain, redness, or swelling. IV flushed thoroughly pre- and post-medication administration. IVP given by RN. --19:23 Tiffany Mcmullen 19:31 07/24/16. BP: 115/69. HR: 89. RR: 15 (regular and unlabored). O2 saturation: 100% on room air. Pain level now: 08/17. --19:32 Tiffany Mcmullen 19:45 07/24/16. ( Pt ambulated to , tolerated well.). --19:45 Tiffany Mcmullen 20:46 07/24/2016 Site #1 removed upon discharge. Catheter intact. Pressure dressing applied. --20:51 Tiffany Mcmullen 20:46 07/24/2016 IV Fluids IV NS Discontinued: bag #1 discontinued upon discharge. Total amount infused: 600 mL. IV patency established. IV site checked: no pain, redness, or swelling. IV flushed thoroughly. --20:51 Tiffany Mcmullen 20:46 07/24/2016 IV Saline Lock Drip IV Discontinued: bag #1. Total amount infused: 0 mL. --20:51 Tiffany Mcmullen. DISPOSITION / DISCHARGE 20:41 07/24/16. Condition at departure: improved. The goals identified in the patient's plan of care were met. FALL RISK ASSESSMENT: Fall risk assessment completed. No fall risk identified. --20:41 Tiffany Mcmullen 20:40 07/24/16. BP: 115/63. HR: 92. RR: 16. O2 saturation: 99% on room air. Temp: 98.4 F. Pain level now: 09/17. --20:41 Tiffany Mcmullen 20:50 07/24/16. Departure time: 20:50 Jul 24 2016. No learning barriers present. Discharge instructions provided and reviewed with the patient. Reviewed warnings (Patient verbalized awareness of warning s/sx listed in dc paperwork. Pt verbalized understanding of sedation warning.). Reviewed medication(s) side effects, precautions, dosing and course information. Prescription(s) given to the patient (Ultram). Treatments reviewed. Reviewed referral to an data entry supervisor for followup. Patient verbalized understanding. Written instructions provided in [place]ar[place]. The patient was discharged by the nurse practitioner. She was discharged home and accompanied by feeder operator. She left the Emergency Department ambulatory and via private vehicle. Floor Care Technician driving. --20:50 Tiffany Mcmullen. Locked/Released at 07/24/2016 21:29 by Tiffany Mcmullen,
--- NOTE | 2016-07-24 20:29 | ED ORDER SUMMARY ---
..... Patient: MELIA PANG OrderSheet [facility] VisitID: [id number] [place] [address] 21y, F Registration Date/Time: 07/24/2016 ORDER SHEET Weight: 109.3 kg (stated) Allergies: No Known Drug Allergy GENERAL ORDERS: CBC w Diff Urgent (18:49 07/24/2016 HBivens A.R.N.P.) (Ack 18:50 NHouse ER Tech1) (19:12 ASchmuck) CMP Urgent (18:49 07/24/2016 HBivens A.R.N.P.) (Ack 18:50 NHouse ER Tech1) (19:12 ASchmuck) UA-Culture if indicated Urgent (18:49 07/24/2016 HBivens A.R.N.P.) (Ack 18:50 NHouse ER Tech1) (18:52 JRomanelli R.N.) Amylase Urgent (18:49 07/24/2016 HBivens A.R.N.P.) (Ack 18:50 NHouse ER Tech1) (19:12 ASchmuck) Lipase Urgent (18:49 07/24/2016 HBivens A.R.N.P.) (Ack 18:50 NHouse ER Tech1) (19:12 ASchmuck) Urine Urgent (18:49 07/24/2016 HBivens A.R.N.P.) (Ack 18:50 NHouse ER Tech1) (19:12 ASchmuck) CT Abd/Pel w Cont (No) (pending) Urgent (19:38 07/24/2016 HBivens A.R.N.P.) (Ack 19:41 AMcQuoid ER Tech1) (20:00 MCampbell) MEDICATION ORDERS: IV FLUIDS: Toradol IV 30 mg (NOW) (18:49 07/24/2016 HBivens A.R.N.P.) (Ack 19:12 ASchmuck) (19:23 ASchmuck) Zofran IV 4 mg (NOW) (18:49 07/24/2016 HBivens A.R.N.P.) (Ack 19:12 ASchmuck) (19:23 ASchmuck) IV Saline Lock (18:49 07/24/2016 HBivens A.R.N.P.) (19:07 Chani R.N.) IV NS : initial bolus 1000 mL (1000 mL/hr), then none - (NOW) (19:07 07/24/2016 HBivens A.R.N.P.) (Ack 19:12 ASchmuck) (19:23 ASchmuck) ORDER SHEET NOTES: [Electronically signed by Ashley Schwartz A.R.N.P. (20:54 07/24/2016)] [Electronically signed by Tiffany Mcmullen (21:29 07/24/2016)] [Electronically locked/signed by Tiffany Mcmullen (21:29 07/24/2016)]
--- NOTE | 2016-07-24 21:30 | ED MED RECONCILIATION SUMMARY ---
Patient: MELIA PANG Medication Reconciliation Report [facility] VisitID: [id number] [address] [place] [address] 21y, F Registration Date/Time: 07/24/2016 Weight: 109.3 kg Height/Length: 64 in. BMI: 41.4 ALLERGIES: No Known Drug Allergy The patient's Home Medications are listed below: THE FOLLOWING MEDICATIONS NEED TO BE RECONCILED: Vitamins Oral 1 pill, daily The source(s) of the original Home Medication information: patient The following Medications were given to the patient in the Emergency Department: IV NS IV Fluids bolus 0, then 1000 mL/hr, administered: 07/24/2016 7:18:00 PM Zofran [IVP] IVP 4 mg, administered: 07/24/2016 7:20:00 PM Toradol [IVP] IVP 30 mg, administered: 07/24/2016 7:22:00 PM The following Medications were prescribed to the patient: Ultram 50 mg tablets: take 1-2 orally every 6 hours as needed for pain. Dispense twenty (20). No refills. Substitution is permissible. -- Ashley Schwartz A.R.N.P.
--- NOTE | 2016-07-24 21:30 | ED MAR SUMMARY ---
..... Medication Administration Record [facility] [address] [place] [address] Patient: MELIA PANG Visit ID: [id number] 21y, F Weight: 109.3 kg Height/Length: 64 in BMI: 41.4 ALLERGIES: No Known Drug Allergy Start 19:18 07/24/2016 Tiffany Mcmullen,, Stop 20:46 07/24/2016 Tiffany Mcmullen, Medication Administered: IV NS (SALINE), Dose: IV Fluids over 1 hour(s), Rate: 1000 mL/hr, Dispensed: 1000 mL bag, Site: #1 left AC. Medication Ordered: IV NS : initial bolus 1000 mL (1000 mL/hr), then none - (NOW). Given 19:20 07/24/2016 Tiffany Mcmullen, Medication Administered: ZOFRAN [IVP] (ONDANSETRON HCL), Dose: 4 mg IVP over 1 minute(s), Site: #1 left AC. Medication Ordered: Zofran IV 4 mg (NOW). Given 19:22 07/24/2016 Tiffany Mcmullen, Medication Administered: TORADOL [IVP], Dose: 30 mg IVP over 1 minute(s), Site: #1 left AC. Medication Ordered: Toradol IV 30 mg (NOW).
--- NOTE | 2016-07-24 21:30 | ED MAR SUMMARY ---
..... Medication Administration Record [facility] [address] [place] [address] Patient: MELIA PANG Visit ID: [id number] 21y, F Weight: 109.3 kg Height/Length: 64 in BMI: 41.4 ALLERGIES: No Known Drug Allergy Start 19:18 07/24/2016 Tiffany Mcmullen,, Stop 20:46 07/24/2016 Tiffany Mcmullen, Medication Administered: IV NS (SALINE), Dose: IV Fluids over 1 hour(s), Rate: 1000 mL/hr, Dispensed: 1000 mL bag, Site: #1 left AC. Medication Ordered: IV NS : initial bolus 1000 mL (1000 mL/hr), then none - (NOW). Given 19:20 07/24/2016 Tiffany Mcmullen, Medication Administered: ZOFRAN [IVP] (ONDANSETRON HCL), Dose: 4 mg IVP over 1 minute(s), Site: #1 left AC. Medication Ordered: Zofran IV 4 mg (NOW). Given 19:22 07/24/2016 Tiffany Mcmullen, Medication Administered: TORADOL [IVP], Dose: 30 mg IVP over 1 minute(s), Site: #1 left AC. Medication Ordered: Toradol IV 30 mg (NOW).
--- NOTE | 2016-07-24 21:30 | ED DISCHARGE INSTRUCTIONS ---
Patient: MELIA PANG General Instructions [facility] VisitID: [id number] [address] [place] [address] 21y, F Registration Date/Time: 07/24/2016 Single simple right ovarian cyst. No ruptured ovarian cyst, torsion of ovary or polycystic ovarian disease. Acute right lower quadrant abdominal pain. INSTRUCTIONS Do not work tomorrow. Warnings: GENERAL WARNINGS: Return or contact your physician immediately if your condition worsens or changes unexpectedly, if not improving as expected, or if other problems arise. SPECIFICALLY, return if you develop pain in the abdomen or pelvis, fever, the inability to keep fluids down, blood in vomitus, blood in diarrhea, fainting, lightheadedness or vaginal bleeding. Prescription Medications: Ultram 50 mg tablets: take 1-2 orally every 6 hours as needed for pain. Dispense twenty (20). No refills. Substitution is permissible. Understanding of the discharge instructions verbalized by patient. Follow-up with: Willie Hensley MD, Obstetrics/Gynecology, , [facility], [address] [place] [address] Follow up in about two days even if well. Call for an appointment. Summary of care provided to patient. ADDITIONAL INFORMATION Abdominal Pain, Unknown Cause (Female) The exact cause of your abdominal (stomach) pain is not certain. This does not mean that this is something to worry about, or the right tests were not done. Everyone likes to know the exact cause of the problem, but sometimes with abdominal pain, there is no clear-cut cause, and this could be a good thing. The good news is that your symptoms can be treated, and you will feel better. Your condition does not seem serious now; however, sometimes the signs of a serious problem may take more time to appear. For this reason,it is important for you to watch for any new symptoms, problems,or worsening of your condition. Over the next few days, the abdominal pain may come and go, or be continuous. Other common symptoms can include nausea and vomiting. Sometimes it can be difficult to tell if you feel nauseous, you may just feel bad and not associate that feeling with nausea. Constipation, diarrhea, and a fever may go along with the pain. The pain may continue even if treated correctly over the following days. Depending on how things go, sometimes the cause can become clear and may require further or different treatment. Additional evaluations, medications, or tests may be needed. Home care Your health care provider may prescribe medications for pain, symptoms, or an infection. Follow the health care provider's instructions for taking these medications. General care Rest until your next exam. No strenuous activities. Try to find positions that ease discomfort. A small pillow placed on the abdomen may help relieve pain. Something warm on your abdomen (such as a heating pad) may help, but be careful not to burn yourself. Diet Do not force yourself to eat, especially if having cramps, vomiting, or diarrhea. Water is important so you do not get dehydrated. Soup may also be good. Sports drinks may also help, especially if they are not too acidic. Make sure you don't drink sugary drinks as this can make things worse. Take liquids in small amounts. Do not guzzle them. Caffeine sometimes makes the pain and cramping worse. Avoid dairy products if you have vomiting or diarrhea. Don't eat large amounts at a time. Wait a few minutes between bites. Eat a diet low in fiber (called a low-residue diet). Foods allowed include refined breads, white rice, fruit and vegetable juices without pulp, tender meats. These foods will pass more easily through the intestine. Avoid whole-grain foods, whole fruits and vegetables, meats, seeds and nuts, fried or fatty foods, dairy, alcohol and spicy foods until your symptoms go away. Follow-up care Follow up with your health care provider as instructed, or if your pain does not begin to improve in the next 24 hours. When to seek medical care Seek prompt medical care if any of the following occur: Pain gets worse or moves to the right lower abdomen New or worsening vomiting or diarrhea Swelling of the abdomen Unable to pass stool for more than three days Fever of 100.4F (38C) or higher, or as directed by your healthcare provider. Blood in vomit or bowel movements (dark red or black color) Jaundice (yellow color of eyes and skin) Weakness, dizziness Chest, arm, back, neck or jaw pain Unexpected vaginal bleeding or missed period Call 911 Call emergency services if any of the following occur: Trouble breathing Confusion Fainting or loss of consciousness Rapid heart rate Seizure Abdominal Pain,Possible Appendicitis [Repeat Exam, Female] Based on your visit today, the exact cause of your abdominal (stomach) pain is not certain. However, you do have some of the early signs of APPENDICITIS. Early in an appendix infection the symptoms can be similar to a simple "stomach ache" or "stomach flu". Therefore, the diagnosis can be hard to make. Since an appendix infection is a serious condition, it is important to know if this is the cause of your symptoms. WAITING for more time to pass and repeating the exam is the best way to find out whether you have appendicitis. Within the next 12-24 hours the cause of your stomach pain should become clear. It is important for you to watch for any new symptoms or worsening of your condition. (See below). Home Care: Rest until your next exam. No strenuous activities. Eat a diet low in fiber (called a low-residue diet). Foods allowed include refined breads, white rice, fruit and vegetable juices without pulp, tender meats. These foods will pass more easily through the intestine. Avoid whole-grain foods, whole fruits and vegetables, meats, seeds and nuts, fried or fatty foods, dairy, alcohol and spicy foods until your symptoms go away. In some cases, you may be asked not to eat or drink anything until you are re-examined. Return for another exam exactly as directed. Follow Up with your doctor or this facility as directed. Get Prompt Medical Attention if any of the following occur: Pain gets worse or moves to the right lower abdomen New or worsening vomiting or diarrhea Swelling of the abdomen Unable to pass stool for more than three days Fever of 100.4F (38C) or higher, or as directed by your healthcare provider Blood in vomit or bowel movements (dark red or black color) Weakness, dizziness or fainting Unexpected vaginal bleeding Ovarian Cyst The ovary is a small organ located on each side of the uterus. During each menstrual cycle a tiny egg sac forms in the ovary. If the egg is released but does not occur, this sac usually dissolves. Sometimes, the sac may fill with fluid. It then enlarges into a painful cyst. Usually the cyst will rupture or shrink on its own. In either case, the pain gradually goes away over the next 1-3 days. If the cyst does not shrink or rupture, it may cause continued pain. Home Care: Rest in bed and avoid heavy exertion until you are feeling better. Heat to the lower abdomen usually helps (heating pad or hot packs -- a small towel soaked in hot water). You may use acetaminophen (Tylenol) or ibuprofen (Motrin, Advil) to control pain, unless another pain medicine was prescribed. [NOTE: If you have chronic liver or kidney disease or ever had a stomach ulcer or GI bleeding, talk with your doctor before using these medicines.] Follow Up: See your doctor within the next 2-3 days if your pain doesnt improve. Otherwise, follow up with your doctor after your next period or as directed by our staff. Get Prompt Medical Attention if any of the following occur: Pain worsens or fails to respond to the above measures Fever of 100.4F (38C) or higher, or as directed by your healthcare provider Heavy vaginal bleeding (soaking one pad an hour for three hours) You feel weak or dizzy Fainting Passage of a pink or armenta tissue with menstrual bleeding Tramadol Hydrochloride Oral tablet What is this medicine? TRAMADOL (TRA ma dole) is a pain reliever. It is used to treat moderate to severe pain in adults. How should I use this medicine? Take this medicine by mouth with a full glass of water. Follow the directions on the prescription label. If the medicine upsets your stomach, take it with food or milk. Do not take more medicine than you are told to take. Talk to your refinery operator regarding the use of this medicine in children. Special care may be needed. What side effects may I notice from receiving this medicine? Side effects that you should report to your doctor or health hospice care consultant as soon as possible: allergic reactions like skin rash, itching or hives, swelling of the face, lips, or tongue breathing difficulties, wheezing confusion itching light headedness or fainting spells redness, blistering, peeling or loosening of the skin, including inside the mouth seizures Side effects that usually do not require medical attention (report to your doctor or health hospice care consultant if they continue or are bothersome): constipation dizziness drowsiness headache nausea, vomiting What may interact with this medicine? Do not take this medicine with any of the following medications: MAOIs like Carbex, Eldepryl, Marplan, Nardil, and Parnate This medicine may also interact with the following medications: alcohol or medicines that contain alcohol antihistamines benzodiazepines bupropion carbamazepine or oxcarbazepine clozapine cyclobenzaprine digoxin furazolidone linezolid medicines for depression, anxiety, or psychotic disturbances medicines for migraine headache like almotriptan, eletriptan, frovatriptan, naratriptan, rizatriptan, sumatriptan, zolmitriptan medicines for pain like pentazocine, buprenorphine, butorphanol, meperidine, nalbuphine, and propoxyphene medicines for sleep muscle relaxants naltrexone phenobarbital phenothiazines like perphenazine, thioridazine, chlorpromazine, mesoridazine, fluphenazine, prochlorperazine, promazine, and trifluoperazine procarbazine warfarin What if I miss a dose? If you miss a dose, take it as soon as you can. If it is almost time for your next dose, take only that dose. Do not take double or extra doses. Where should I keep my medicine? Keep out of the reach of children. Store at room temperature between 15 and 30 degrees C (59 and 86 degrees F). Keep container tightly closed. Throw away any unused medicine after the expiration date. What should I tell my health care provider before I take this medicine? They need to know if you have any of these conditions: brain tumor depression drug abuse or addiction head injury if you frequently drink alcohol containing drinks kidney disease or trouble passing urine liver disease lung disease, asthma, or breathing problems seizures or epilepsy suicidal thoughts, plans, or attempt; a previous suicide attempt by you or a family member an unusual or allergic reaction to tramadol, codeine, other medicines, foods, dyes, or preservatives or trying to get breast-feeding What should I watch for while using this medicine? Tell your doctor or health hospice care consultant if your pain does not go away, if it gets worse, or if you have new or a different type of pain. You may develop tolerance to the medicine. Tolerance means that you will need a higher dose of the medicine for pain relief. Tolerance is normal and is expected if you take this medicine for a long time. Do not suddenly stop taking your medicine because you may develop a severe reaction. Your body becomes used to the medicine. This does NOT mean you are addicted. Addiction is a behavior related to getting and using a drug for a non-medical reason. If you have pain, you have a medical reason to take pain medicine. Your doctor will tell you how much medicine to take. If your doctor wants you to stop the medicine, the dose will be slowly lowered over time to avoid any side effects. You may get drowsy or dizzy. Do not drive, use machinery, or do anything that needs mental alertness until you know how this medicine affects you. Do not stand or sit up quickly, especially if you are an older patient. This reduces the risk of dizzy or fainting spells. Alcohol can increase or decrease the effects of this medicine. Avoid alcoholic drinks. You may have constipation. Try to have a bowel movement at least every 2 to 3 days. If you do not have a bowel movement for 3 days, call your doctor or health hospice care consultant. Your mouth may get dry. Chewing sugarless gum or sucking hard candy, and drinking plenty of water may help. Contact your doctor if the problem does not go away or is severe. You have been given the following additional information: Abdominal Pain, Unknown Cause, (Female) Abdominal Pain, Possible Appendicitis (Female) Ovarian Cyst Tramadol Hydrochloride Oral tablet Do not work tomorrow. (Electronically signed by Ashley Schwartz A.R.N.P. 07/24/2016 20:54)
--- NOTE | 2016-07-24 21:30 | ED MED RECONCILIATION SUMMARY ---
Patient: MELIA PANG Medication Reconciliation Report [facility] VisitID: [id number] [address] [place] [address] 21y, F Registration Date/Time: 07/24/2016 Weight: 109.3 kg Height/Length: 64 in. BMI: 41.4 ALLERGIES: No Known Drug Allergy The patient's Home Medications are listed below: THE FOLLOWING MEDICATIONS NEED TO BE RECONCILED: Vitamins Oral 1 pill, daily The source(s) of the original Home Medication information: patient The following Medications were given to the patient in the Emergency Department: IV NS IV Fluids bolus 0, then 1000 mL/hr, administered: 07/24/2016 7:18:00 PM Zofran [IVP] IVP 4 mg, administered: 07/24/2016 7:20:00 PM Toradol [IVP] IVP 30 mg, administered: 07/24/2016 7:22:00 PM The following Medications were prescribed to the patient: Ultram 50 mg tablets: take 1-2 orally every 6 hours as needed for pain. Dispense twenty (20). No refills. Substitution is permissible. -- Ashley Schwartz A.R.N.P.
== END 2016-07-24 20:51 | disposition home or self-care (01) ==
LOC: ED SRH 18:25
DX: N83.291 Other ovarian cyst, right side (principal); R10.31 Right lower quadrant pain; R11.2 Nausea with vomiting, unspecified
CPT/HCPCS: 90004; 90100; 92235; 92530; 93070; 95059